=== PATIENT | female | born 1990 | race Caucasian/White ===

== ENCOUNTER 2025-08-09 10:18 | Emergency (ER) | payer SELFPAY ==
--- NOTE | 2025-08-09 11:46 | RAD REPORT ---
EXAMINATION: XR Ankle Left 3 View CLINICAL INDICATION: Female, 35 years old. [facility] MAIN swelling;Pain Bed Name: [facility] TECHNIQUE: 3 view radiographs of the left ankle were obtained. COMPARISON: No prior exam. FINDINGS: No acute bone or joint abnormality seen. No significant arthropathy. Surrounding soft tissu es are unremarkable. IMPRESSION: No acute or significant abnormalities.
--- NOTE | 2025-08-09 11:47 | RAD REPORT ---
EXAM: XR Knee Right 3 View HISTORY: [facility] MAIN PAIN Bed Name: [id number] COMPARISON: None TECHNIQUE: 3 views of the right knee were obtained. FINDINGS: No knee effusion is seen. There is no evidence of acute fracture or dislocation. No signif icant degenerative changes are seen. No soft tissue swelling or other soft tissue abnormality is present. IMPRESSION: No evidence of acute osseous abnormality.
--- NOTE | 2025-08-09 11:47 | RAD REPORT ---
EXAMINATION: XR Foot Left 3 View CLINICAL INDICATION: Female, 35 years old. [facility] MA[facility] PAIN Bed Name: [facility] TECHNIQUE: 3 view radiographs of the left foot were obtained. COMPARISON: No prior exam. FINDINGS: No evidence of fracture or dislocation. Normal alignment. No evidence of arthropathy or oth er focal bone lesion. Soft tissues are unremarkable. No soft tissue swelling. No significant degenerative changes. IMPRESSION: No acute or significant abnormalities.
--- NOTE | 2025-08-09 11:52 | ER ---
Nurse's Notes [facility] Name: Miranda Espinoza Age: 35 yrs Sex: Female : 1990 Arrival Date: 08/09/2025 Time: 10:18 Bed DX3 Private MD: Diagnosis: Sprain of ankle;Contusion of right knee Presentation: 08/09 10:39 Chief complaint: Patient states: twisted her left ankle and fell, landing on right me1 knee. Pain level 7/10. Coronavirus screen: At this time, the client does not indicate any symptoms associated with coronavirus-19. Ebola Screen: No symptoms or risks identified at this time. Initial Sepsis Screen: Does the patient meet any 2 criteria? HR > 90 bpm. Does the patient have a suspected source of infection? No. Patient's initial sepsis screen is negative. Risk Assessment: Do you want to hurt yourself or someone else? Patient reports no desire to harm self or others. Onset of symptoms was August 08, 2025. 10:39 Method Of Arrival: Wheelchair [facility] 10:39 Acuity: DULCE 4 me1 Triage Assessment: 10:42 General: Appears uncomfortable, Behavior is calm, cooperative, appropriate for age. me1 Pain: Complains of pain in right knee and left lateral ankle Pain does not radiate. Pain currently is 7 out of 10 on a pain scale. Quality of pain is described as sharp, Pain began suddenly, 1 day ago. Is continuous. EENT: No signs and/or symptoms were reported regarding the EENT system. Neuro: Level of Consciousness is awake, alert, obeys commands, Oriented to person, place, time, situation, Appropriate for age. Cardiovascular: Patient's skin is warm and dry. Respiratory: Airway is patent Respiratory effort is even, unlabored, Respiratory pattern is regular, symmetrical. GI: No signs and/or symptoms were reported involving the gastrointestinal system. : No signs and/or symptoms were reported regarding the genitourinary system. Derm: Skin is healthy with good turgor, Skin is normal, Wound noted right knee Wound is abrasion. Musculoskeletal: Circulation, motion, and sensation intact. Range of motion: limited in left ankle and right knee. Injury Description: twisted left ankle and fell onto right knee. 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 - Infectious Disease History:: Denies. - Social history:: Smoking status: Reported history of juuling and/or vaping. - Family history:: not pertinent. - Hospitalizations: : No recent hospitalization is reported. Screenin:00 [facility] ED Fall Risk Assessment (Adult) History of falling in the last 3 months, hb including since admission Yes- single mechanical fall (1 pt) Confusion or Disorientation No (0 pts) Intoxicated or Sedated No (0 pts) Impaired Gait No (0 pts) Mobility Assist Device Used No (0 pt) Altered Elimination No (0 pt) Score/Fall Risk Level 0 - 2 = Low Risk Oriented to surroundings, Maintained a safe environment, Educated pt \T\ family on fall prevention, incl call for assistance when getting out of bed. Abuse screen: Denies threats or abuse. Denies injuries from another. Nutritional screening: No deficits noted. Tuberculosis screening: No symptoms or risk factors identified. Assessment: 12:00 General: Appears in no apparent distress. uncomfortable, Behavior is calm, cooperative. hb Neuro: GCS 15. Cardiovascular: Patient's skin is warm and dry. Respiratory: Respiratory effort is even, unlabored, Respiratory pattern is regular, symmetrical. Musculoskeletal: bruising and swelling noted to left ankle Reports left ankle pain. Vital Signs: 10:39 BP 137 / 101; Pulse 117; Resp 19; Temp 98.5; Pulse Ox 98% ; Weight 99.79 kg; Height 5 me1 ft. 2 in. ; Pain 7/10; 10:39 Body Mass Index 40.24 (99.79 kg, 157.48 cm) me1 10:39 Pain Scale: Adult me1 ED Course: 10:22 Patient arrived in ED. cj3 10:24 William Eagle MD is Attending Physician. rn 10:42 Triage completed. me1 10:42 Arm band placed on Patient placed in waiting room. me1 11:08 XRAY Ankle LEFT 3 view In Process Unspecified. EDMS 11:08 XRAY Foot LEFT 3 View In Process Unspecified. EDMS 11:08 XRAY Knee RIGHT 3 view In Process Unspecified. EDMS 12:00 Patient has correct armband on for positive identification. Provided Education on: hb follow up. 12:00 No provider procedures requiring assistance completed. Patient did not have IV access hb during this emergency room visit. Administered Medications: No medications were administered Medication: 12:00 VIS not applicable for this client. hb Outcome: 11:52 Discharge ordered by . rn 12:00 Discharged to home assisted to POV via wheelchair hb 12:00 Condition: stable 12:00 Discharge instructions given to patient, Instructed on discharge instructions, follow up and referral plans. medication usage, Demonstrated understanding of instructions, follow-up care, medications, 12:13 Patient left the ED. hb Signatures: Dispatcher [employer] EDNC William Eagle MD MD rn Baxter, Heather, RN RN Hayley Quiñones RN RN mt1 Marian Salas 3
--- NOTE | 2025-08-09 11:52 | EDPHYS ---
Physician Documentation [facility] Name: Miranda Espinoza Age: 35 yrs Sex: Female : 1990 Arrival Date: 08/09/2025 Time: 10:18 Bed DX3 Private MD: ED Physician William Eagle HPI: 08/09 11:29 This 35 yrs old Female presents to ER via Wheelchair with complaints of Ankle Injury - rn LT, Knee Injury - RT. 11:29 Patient reports fall yesterday, was wearing platform shoes and rolled her left ankle. rn Struck right knee on the ground. No other injuries. Did not come in initially as she was ambulatory but pain worsened this morning.. 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 - Infectious Disease History:: Denies. - Social history:: Smoking status: Reported history of juuling and/or vaping. - Family history:: not pertinent. - Hospitalizations: : No recent hospitalization is reported. ROS: 11:29 Constitutional: Negative for fever, chills, and weight loss, Cardiovascular: Negative rn for chest pain, palpitations, and edema, Respiratory: Positive for shortness of breath Abdomen/GI: Negative for abdominal pain, nausea, vomiting, diarrhea, and constipation, MS/Extremity: Negative for injury and deformity, Neuro: Positive for generalized weakness Exam: 11:29 Constitutional: This is a well developed, well nourished patient who is awake, alert, rn and in no acute distress. MS/ Extremity: Mild swelling left lateral malleolus with tenderness. No proximal tib-fib tenderness. Mild tenderness midfoot left foot. Abrasion inferior to right patella but no laceration or gross deformity. Full range of motion of the right knee. Vital Signs: 10:39 BP 137 / 101; Pulse 117; Resp 19; Temp 98.5; Pulse Ox 98% ; Weight 99.79 kg; Height 5 me1 ft. 2 in. ; Pain 7/10; 10:39 Body Mass Index 40.24 (99.79 kg, 157.48 cm) me1 10:39 Pain Scale: Adult me1 MDM: 10:24 Medical Screening Exam initiated rn 11:51 Differential diagnosis: fracture, sprain. Data reviewed: vital signs, nurses notes, rn radiologic studies, plain films, and as a result, I will discharge patient. Independent interpretation of the following test(s) in the Emergency Department X-Ray: My interpretation is X-ray images left ankle negative for acute fracture or dislocation per my interpretation. X-ray images right knee negative for acute fracture or dislocation per my interpretation.. Counseling: I had a detailed discussion with the patient and/or guardian regarding the historical points, exam findings, and any diagnostic results supporting the discharge/admit diagnosis, radiology results, the need for outpatient follow up, to return to the emergency department if symptoms worsen or persist or if there are any questions or concerns that arise at home. Special discussion: I discussed with the patient/guardian in detail that at this point there is no indication for admission to the hospital. It is understood, however, that if the symptoms persist or worsen the patient needs to return immediately for re-evaluation. 08/09 10:44 Order name: XRAY Ankle LEFT 3 view; Complete Time: 11:50 rn 08/09 10:44 Order name: XRAY Foot LEFT 3 View; Complete Time: 11:50 rn 08/09 10:44 Order name: XRAY Knee RIGHT 3 view; Complete Time: 11:50 rn 08/09 11:52 Order name: Walking boot; Complete Time: 12:11 rn Administered Medications: No medications were administered Disposition Summary: 08/09/25 11:52 Discharge Ordered Notes: Location: Home rn Problem: new rn Symptoms: have improved rn Condition: Stable rn Diagnosis - Sprain of ankle rn - Contusion of right knee rn Followup: rn - With: Private Physician - When: As needed - Reason: Recheck today's complaints, Re-evaluation by your physician Discharge Instructions: - Discharge Summary Sheet rn - Ankle Sprain rn - Contusion rn - Walking Boot, Adult rn Forms: - Medication Reconciliation Form rn - Antibiotic cook morning - Prescription Opioid Use rn - Patient Portal Instructions rn - Leadership Thank You Letter rn Signatures: Dispatcher [employer] William Bailon MD MD rn Eddleman, Michelle RN RN ma1
[2025-08-09 15:04] VITALS: BP 137/101; TEMP 98.5; O2SAT 98
== END 2025-08-09 12:13 | disposition home or self-care (01) ==
LOC: ER 10:18
DX: S80.01XA Contusion of right knee, initial encounter (principal); S93.402A Sprain of unspecified ligament of left ankle, initial encounter; F17.290 Nicotine dependence, other tobacco product, uncomplicated; F90.9 Attention-deficit hyperactivity disorder, unspecified type; J45.909 Unspecified asthma, uncomplicated; G47.00 Insomnia, unspecified; W01.0XXA Fall on same level from slipping, tripping and stumbling without subsequent striking against object, initial encounter; Y93.9 Activity, unspecified; Y92.89 Other specified places as the place of occurrence of the external cause
CPT/HCPCS: 99282